=== PATIENT | male | born 1940 | race Caucasian/White ===

== ENCOUNTER → 2021-05-02 | Outpatient (REF) | payer SELFPAY ==
[2021-05-02 08:44] LABS: Anion Gap 9 (5-15); BUN 48 mg/dL (7-18); BUN/Creat Ratio 27.3 RATIO (10-20); Calcium,Total 9.8 mg/dL (8.5-10.1); Chloride 104 mmol/L (98-107); Creatinine, Serum 1.76 mg/dL (0.70-1.30); EST Glomerular Filtration Rate 40 mL/min (>60); Est Glom Filt Rate - Afr Amer 48 mL/min (>60); Glucose 90 mg/dL (74-106); Potassium 4.3 mmol/L (3.5-5.1); Sodium Level 139 mmol/L (136-145)
== END | disposition home or self-care (01) ==
LOC: OLS.ACH 05:00
PROVIDERS: Visit Provider Family Medicine
DX: G93.41 Metabolic encephalopathy (principal); I50.9 Heart failure, unspecified
CPT/HCPCS: 36415; 80048

== ENCOUNTER → 2021-05-11 | Outpatient (REF) | payer SELFPAY ==
[2021-05-11 07:35] LABS: Absolute Lymphocyte Count 0.73 X10^3/uL (0.83-4.51); Absolute Neutrophil Count 4.9 X10^3/uL (2.0-7.7); Basophil# 0.05 X10^3/uL; Basophil% 0.7 % (0-1); Eosinophil# 0.36 X10^3/uL; Eosinophils% 5.4 % (0-5); Hematocrit 29.8 % (40-54); Hemoglobin 9.5 g/dL (13.0-16.5); Lymphocyte # 0.73 X10^3/ul (0.83-4.51); Lymphocyte % 10.9 % (19-41); Mean Corp Hgb Conc 31.9 g/dL (32-36); Mean Corpuscular Hgb 32.2 pg (27.0-32.0); Mean Platelet Vol. 9.3 fl (6.2-12.0); Monocyte# 0.67 X10^3/uL; NRBC Flagged by Analyzer 0 % (0-5); Neutrophil # 4.87 X10^3/uL (2.7-7.7); Neutrophil % 72.7 % (47-70); Platelet Count 312 K/mm3 (150-450); RBC Distribution Width CV 16.2 % (11.6-14.6); RBC Distribution Width SD 60.2 fl (35.1-43.9); Red Blood Count 2.95 M/mm3 (4.6-6.2); White Blood Count 6.7 K/mm3 (4.4-11.0)
[2021-05-11 07:48] LABS: Anion Gap 6 (5-15); BUN 33 mg/dL (7-18); BUN/Creat Ratio 18.6 RATIO (10-20); Calcium,Total 9.6 mg/dL (8.5-10.1); Chloride 106 mmol/L (98-107); Creatinine, Serum 1.77 mg/dL (0.70-1.30); EST Glomerular Filtration Rate 39 mL/min (>60); Est Glom Filt Rate - Afr Amer 48 mL/min (>60); Glucose 102 mg/dL (74-106); Potassium 3.6 mmol/L (3.5-5.1); Sodium Level 138 mmol/L (136-145)
== END | disposition home or self-care (01) ==
LOC: OLS.ACH 05:00
PROVIDERS: Visit Provider Family Medicine
DX: I50.22 Chronic systolic (congestive) heart failure (principal); N18.32 Chronic kidney disease, stage 3b
CPT/HCPCS: 36415; 80048; 85025

== ENCOUNTER → 2021-05-16 | Outpatient (REF) | payer MEDICARE, SELFPAY ==
[2021-05-16 09:25] LABS: Absolute Lymphocyte Count 0.93 X10^3/uL (0.83-4.51); Absolute Neutrophil Count 6.1 X10^3/uL (2.0-7.7); Basophil# 0.05 X10^3/uL; Basophil% 0.6 % (0-1); Eosinophils% 4.9 % (0-5); Hematocrit 29.9 % (40-54); Hemoglobin 9.6 g/dL (13.0-16.5); Lymphocyte # 0.93 X10^3/ul (0.83-4.51); Lymphocyte % 11.4 % (19-41); Mean Corp Hgb Conc 32.1 g/dL (32-36); Mean Corpuscular Hgb 31.6 pg (27.0-32.0); Mean Corpuscular Volume 98.4 fL (80-94); Mean Platelet Vol. 9.7 fl (6.2-12.0); Monocyte# 0.68 X10^3/uL; Monocyte% 8.3 % (0-10); NRBC Flagged by Analyzer 0 % (0-5); Neutrophil # 6.09 X10^3/uL (2.7-7.7); Neutrophil % 74.6 % (47-70); Platelet Count 281 K/mm3 (150-450); RBC Distribution Width CV 16.1 % (11.6-14.6); RBC Distribution Width SD 57.6 fl (35.1-43.9); Red Blood Count 3.04 M/mm3 (4.6-6.2); White Blood Count 8.2 K/mm3 (4.4-11.0)
[2021-05-16 09:39] LABS: Anion Gap 7 (5-15); BUN 25 mg/dL (7-18); Calcium,Total 9.2 mg/dL (8.5-10.1); Chloride 103 mmol/L (98-107); Creatinine, Serum 1.56 mg/dL (0.70-1.30); EST Glomerular Filtration Rate 45 mL/min (>60); Est Glom Filt Rate - Afr Amer 55 mL/min (>60); Glucose 91 mg/dL (74-106); Potassium 3.5 mmol/L (3.5-5.1); Sodium Level 136 mmol/L (136-145)
== END | disposition home or self-care (01) ==
LOC: OLS.ACH 05:00
PROVIDERS: Visit Provider Family Medicine
DX: D50.9 Iron deficiency anemia, unspecified (principal); I13.0 Hypertensive heart and chronic kidney disease with heart failure and stage 1 through stage 4 chronic kidney disease, or unspecified chronic kidney disease; I50.9 Heart failure, unspecified; N18.9 Chronic kidney disease, unspecified
CPT/HCPCS: 36415; 80048; 85025